=== PATIENT | male | born 1995 | race American Indian/Alaskan Native ===

== ENCOUNTER 2019-05-14 10:24 | Emergency (ER) | payer SELFPAY ==
--- NOTE | 2019-05-14 10:52 | EDM.PDOC ---
ED HPI GENERAL MEDICAL PROBLEM - General Chief Complaint: Chest Pain Stated Complaint: SHARP PAIN WHEN BREATHING Time Seen by Provider: 05/14/19 10:51 Source of Information: Reports: Patient, RN, RN Notes Reviewed History Limitations: Reports: No Limitations - History of Present Illness INITIAL COMMENTS - FREE TEXT/NARRATIVE: Pt to ER with c/o sharp pain in the bilateral anterior chest intermittently for the past several weeks. Patient states he notices it more when he lays down. Does not notice it with daily activity. States he feels SOB at times with it. Denies fever, chills, cough, N/V. Admits to diarrhea at times. Denies recent trauma. Denies hx of indigestion/acid reflux. Admits to history of anxiety. States alcohol use 1-2 times monthly, and denies drug use. States pain awoke him from sleep this morning. Denies pain at this time. Onset: Gradual, Unknown/Unsure Duration: Intermittent Location: Reports: Chest Quality: Reports: Sharp Severity: Moderate Improves with: Reports: None Worsens with: Reports: None Bilateral Upper Chest Pain Score (Numeric/FACES): 5 - Related Data Allergies Allergy/AdvReac Type Severity Reaction Status Date / Time No Known Allergies Allergy Verified 05/14/19 10:35 Home Meds: Home Meds . [No Known Home Meds] 05/14/19 [History] Past Medical History Cardiovascular History: Reports: Hypertension - Past Surgical History HEENT Surgical History: Reports: Tonsillectomy Social & Family History - Family History Cardiac: Reports: Heart Failure, [place] - Tobacco Use Smoking Status *Q: Never Smoker Second Hand Smoke Exposure: No - Caffeine Use Caffeine Use: Reports: Coffee, Soda - Recreational Drug Use Recreational Drug Use: No ED ROS GENERAL - Review of Systems Review Of Systems: ROS reveals no pertinent complaints other than HPI. ED EXAM, GENERAL - Physical Exam Exam: See Below Exam Limited By: No Limitations General Appearance: Alert, WD/WN, No Apparent Distress Eye Exam: Bilateral Eye: EOMI, Normal Inspection Ears: Normal External Exam, Hearing Grossly Normal Nose: Normal Inspection Throat/Mouth: Normal Inspection. No: Normal Teeth Head: Atraumatic, Normocephalic Neck: Normal Inspection, Supple, Non-Tender, Full Range of Motion Respiratory/Chest: No Respiratory Distress, Lungs Clear, Normal Breath Sounds, No Accessory Muscle Use, Chest Non-Tender Cardiovascular: Normal Peripheral Pulses, Regular Rate, Rhythm, No Edema, No Gallop, No JVD, No Murmur, No Rub Peripheral Pulses: 2+: Radial (L), Radial (R) GI/Abdominal: Normal Bowel Sounds, Soft, Non-Tender, No Organomegaly, No Distention (Male) Exam: Deferred Rectal (Males) Exam: Deferred Back Exam: Normal Inspection, Full Range of Motion, NT Extremities: Normal Inspection, Normal Range of Motion, Non-Tender, Normal Capillary Refill, No Pedal Edema Neurological: Alert, Oriented, CN II-XII Intact, Normal Cognition, Normal Gait, Normal Reflexes, No Motor/Sensory Deficits Psychiatric: Normal Affect, Normal Mood Skin Exam: Warm, Dry, Intact, Normal Color, No Rash Lymphatic: No Adenopathy Course - Vital Signs Last Recorded V/S: Last Vital Signs Temp 98.4 F 05/14/19 10:29 Pulse 93 05/14/19 10:29 Resp 20 05/14/19 10:29 BP 138/72 05/14/19 10:29 Pulse Ox 95 05/14/19 10:29 - Orders/Labs/Meds Orders: Active Orders 24 hr Category Date Time Status EKG Documentation Completion [RC] STAT Care 05/14/19 10:49 Active Peripheral IV Care [RC] . DIRECTED Care 05/14/19 10:50 Active DRUG SCREEN URINE BIORAD [URCHEM] Stat Lab 05/14/19 10:50 Ordered UA RFX MARIAM AND CULT IF INDIC [URIN] Stat Lab 05/14/19 10:49 Ordered Sodium Chloride 0.9% [Saline Flush] Med 05/14/19 10:49 Active 10 ml FLUSH ASDIRECTED PRN Peripheral IV Insertion Adult [OM.PC] Stat Oth 05/14/19 10:49 Ordered Medication Orders Sodium Chloride (Saline Flush) 10 ml FLUSH ASDIRECTED PRN PRN Reason: Keep Vein Open Last Admin: 05/14/19 11:39 Dose: 10 ml Labs: Laboratory Tests 05/14/19 05/14/19 05/14/19 Range/Units 11:04 11:04 11:04 WBC 8.3 (5.0-10.0) 10^3/uL RBC 5.04 (4.6-6.2) 10^6/uL Hgb 15.0 (14.0-18.0) g/dL Hct 43.2 (40.0-54.0) % MCV 85.7 (80-100) fL MCH 29.8 (27.0-34.0) pg MCHC 34.7 (33.0-35.0) g/dL Plt Count 298 (150-450) 10^3/uL Neut % (Auto) 62.6 (42.2-75.2) % Lymph % (Auto) 26.2 (20.5-50.1) % [place] % (Auto) 7.9 (2-8) % Eos % (Auto) 2.7 (1.0-3.0) % Baso % (Auto) 0.6 (0.0-1.0) % D-Dimer, Quantitative < 100 (0-400) ng/mL Sodium 138 (135-145) mmol/L Potassium 3.9 (3.6-5.0) mmol/L Chloride 102 (101-111) mmol/L Carbon Dioxide 26.0 (21.0-31.0) mmol/L Anion Gap 13.9 BUN 10 (7-18) mg/dL Creatinine 0.7 (0.6-1.3) mg/dL Est Cr Clr Drug Dosing 166.93 mL/min Estimated GFR (MDRD) > 60 BUN/Creatinine Ratio 14.28 Glucose 105 (74-105) mg/dL Calcium 9.4 (8.4-10.2) mg/dl Total Bilirubin 0.6 (0.2-1.0) mg/dL AST 24 (10-42) IU/L ALT 36 (10-60) IU/L Alkaline Phosphatase 77 (42-121) IU/L Troponin I < 0.02 (0.00-0.02) ng/ml Total Protein 7.8 (6.7-8.2) g/dl Albumin 4.2 (3.2-5.5) g/dl Globulin 3.6 Albumin/Globulin Ratio 1.17 Ethyl Alcohol < 5 mg/dL Meds: Medications Generic Name Dose Route Start Last Admin Trade Name Freq PRN Reason Stop Dose Admin Sodium Chloride 10 ml 05/14/19 10:49 05/14/19 11:39 Saline Flush FLUSH 10 ml ASDIRECTED PRN Administration Keep Vein Open - Radiology Interpretation Free Text/Narrative:: Chest xray: See rad report Departure - Departure Time of Disposition: 12:32 Disposition: Home, Self-Care 01 Condition: Fair Clinical Impression: Costochondral chest pain - Discharge Information *PRESCRIPTION DRUG MONITORING PROGRAM REVIEWED*: No *COPY OF PRESCRIPTION DRUG MONITORING REPORT IN PATIENT SAWYER: No Instructions: Nonspecific Chest Pain, [id number], Costochondritis, Easy-to- Read Forms: ED Department Discharge Additional Instructions: May use ibuprofen as directed for pain Sit up for at least 30 minutes after eating Follow up with your primary care facility - My Orders Last 24 Hours: My Active Orders 05/14/19 10:49 EKG Documentation Completion [RC] STAT UA RFX MARIAM AND CULT IF INDIC [URIN] Stat Sodium Chloride 0.9% [Saline Flush] 10 ml FLUSH ASDIRECTED PRN Peripheral IV Insertion Adult [OM.PC] Stat 05/14/19 10:50 Peripheral IV Care [RC] . DIRECTED DRUG SCREEN URINE BIORAD [URCHEM] Stat - Assessment/Plan Last 24 Hours: My Active Orders 05/14/19 10:49 EKG Documentation Completion [RC] STAT UA RFX MARIAM AND CULT IF INDIC [URIN] Stat Sodium Chloride 0.9% [Saline Flush] 10 ml FLUSH ASDIRECTED PRN Peripheral IV Insertion Adult [OM.PC] Stat 05/14/19 10:50 Peripheral IV Care [RC] . DIRECTED DRUG SCREEN URINE BIORAD [URCHEM] Stat
[2019-05-14 11:32] LABS: ANION GAP 13.9; CHLORIDE,CL 102 mmol/L (101-111); SODIUM,NA 138 mmol/L (135-145)
[2019-05-14] MEDS: Sodium Chloride 0.9% 10 ML Syringe FLUSH PRN (11:39)
--- NOTE | 2019-05-14 12:24 | CR ---
EXAMINATION: Chest 2V SEX: Male AGE: 23 years CLINICAL HISTORY: 23-year-old obese male complaining of sharp chest pains, radiation down left arm. INTERPRETATION: 1. Reasonable inspiratory effort large male. Vibha thorax unremarkable. 2. Normal cardiac silhouette out pulmonary venous congestion, cephalization of flow, alveolar edema or pleural effusion. 3. No lung mass or hilar lymphadenopathy. 4. No focal lobar pneumonia, atelectasis or collapse. 5. No pneumothorax or free subdiaphragmatic air. CONCLUSION: Negative exam.
== END 2019-05-14 12:52 | disposition home or self-care (01) ==
LOC: DL.ED 10:24
DX: M94.0 Chondrocostal junction syndrome [Tietze] (principal)
CPT/HCPCS: 36415; 71046; 80053; 80305-QW; 81003; 84484; 85025; 85379; 93005; 99285-25; G0480

== ENCOUNTER 2021-09-02 23:05 | Emergency (ER) | payer SELFPAY ==
[2021-09-02] MEDS ORDERED: cloNIDine 0.1 MG Tab PO ONE (23:34)
[2021-09-03 00:03] LABS: ANION GAP 16.6 mEq/L (7-13); CHLORIDE,CL 101 mmol/L (98-107); SODIUM,NA 139 mmol/L (136-145)
[2021-09-03 00:29] LABS: CORONAVIRUS COVID-19 NAA POSITIVE (NEGATIVE)
== END 2021-09-03 01:06 | disposition home or self-care (01) ==
LOC: DL.ED 23:05
DX: U07.1 COVID-19 (principal); I10 Essential (primary) hypertension; E83.42 Hypomagnesemia; R09.1 Pleurisy
CPT/HCPCS: 0240U; 36415; 71045; 80053; 83735; 84484; 85025; 86140; 93005; 99284-25; A9270-GY

== ENCOUNTER 2021-09-13 14:01 | Emergency (ER) | payer SELFPAY ==
[2021-09-13] MEDS ORDERED: Ondansetron 4 MG Tab.DIS PO ONE ×2 (14:02→20:17)
[2021-09-13 15:25] LABS: AMPHETAMINES,URINE NEGATIVE (NEGATIVE); BARBITURATES,URINE NEGATIVE (NEGATIVE); BENZODIAZEPINE,URINE NEGATIVE (NEGATIVE); MDMA (ECSTASY), URINE NEGATIVE (NEGATIVE); METHADONE,URINE NEGATIVE (NEGATIVE); METHAMPHETAMINES,URINE NEGATIVE (NEGATIVE); OPIATES,URINE NEGATIVE (NEGATIVE); OXYCODONE,URINE NEGATIVE (NEGATIVE); PHENCYCLIDINE,URINE NEGATIVE (NEGATIVE); TCA,URINE NEGATIVE (NEGATIVE)
[2021-09-13 19:24] LABS: ANION GAP 12.1 mEq/L (7-13); CHLORIDE,CL 102 mmol/L (98-107); SODIUM,NA 137 mmol/L (136-145)
[2021-09-13] MEDS ORDERED: Meclizine 12.5 MG Tab PO ONE (20:17)
[2021-09-13] MEDS ORDERED: Ondansetron 4 MG Tab.DIS ONE (20:43)
== END 2021-09-13 20:53 | disposition home or self-care (01) ==
LOC: DL.ED 14:01
DX: R42 Dizziness and giddiness (principal); R11.2 Nausea with vomiting, unspecified; I10 Essential (primary) hypertension; Z86.16 Personal history of COVID-19
CPT/HCPCS: 36415; 71045; 80053; 80305; 81001; 82947; 85025; 85379; 93005; 99285; A9270